=== PATIENT | male | born 1995 | race African-American/Black ===

== ENCOUNTER 2017-04-19 21:10 | Emergency (ER) | payer OTHER ==
[~2017-04-19] VITALS: Ht 175.3 cm; Wt 79.2 kg
[2017-04-19] MEDS ORDERED: PEPCID20 MG PO (22:39)
[2017-04-19] MEDS ORDERED: BENADRYL25 MG PO (22:39)
[2017-04-19 22:50] VITALS: BP 121/74
== END 2017-04-19 22:50 ==
LOC: EME 21:10
DX: T78.1XXA Other adverse food reactions, not elsewhere classified, initial encounter (principal); Z91.013 Allergy to seafood; J45.909 Unspecified asthma, uncomplicated; Z87.891 Personal history of nicotine dependence
CPT/HCPCS: 99281; 99284; J1100